=== PATIENT | male | born 1950 | race Caucasian/White ===

== ENCOUNTER → 2022-02-01 | Outpatient (CLI) | payer MEDICARE ==
[~2022-02-01] MED LIST: FLOMAX 0.4 MG0.4 MG PO; ROCEPHIN 2 GM AD2 GM IV
== END ==
LOC: HEART 5 08:35
DX: R94.31 Abnormal electrocardiogram [ECG] [EKG] (principal); I49.3 Ventricular premature depolarization
CPT/HCPCS: 78452; A9502